=== PATIENT | male | born 1975 | race African-American/Black ===

== ENCOUNTER 2017-01-01 12:29 | Emergency (ER) | payer MEDICAID ==
[~2017-01-01] VITALS: Ht 167.6 cm; Wt 79.5 kg
[2017-01-01] MEDS ORDERED: HYDROCODONE/ACETAMINOPHEN 5-325 MG TABLET PO ONE (13:30)
[2017-01-01 13:34] VITALS: BP 125/75
== END 2017-01-01 15:08 | disposition home or self-care (01) ==
LOC: EMS 12:35
DX: M79.631 Pain in right forearm (principal); M79.89 Other specified soft tissue disorders
CPT/HCPCS: 93971; 99284

== ENCOUNTER 2017-01-05 11:10 | Emergency (ER) | payer MEDICAID ==
[~2017-01-05] VITALS: Ht 167.6 cm; Wt 79.5 kg
[2017-01-05] MEDS ORDERED: OxyCODONE HCL/ACETAMINOPHEN 5-325 MG TABLET PO ONE (11:45)
[2017-01-05 13:00] VITALS: BP 133/86
== END 2017-01-05 13:04 | disposition home or self-care (01) ==
LOC: EMS 11:12
DX: M79.631 Pain in right forearm (principal)
CPT/HCPCS: 99284

== ENCOUNTER 2017-04-04 12:27 | Emergency (ER) | payer MEDICAID, OTHER ==
[~2017-04-04] VITALS: Ht 177.8 cm; Wt 81.8 kg
[2017-04-04] MEDS ORDERED: OXYC-530 PO (12:47)
[2017-04-04 16:10] VITALS: BP 119/78
== END 2017-04-04 17:21 | disposition left against medical advice (07) ==
LOC: EMS 12:30
DX: M79.631 Pain in right forearm (principal); M25.521 Pain in right elbow; M79.89 Other specified soft tissue disorders; G89.29 Other chronic pain; Z76.0 Encounter for issue of repeat prescription; Z88.6 Allergy status to analgesic agent
CPT/HCPCS: 99281